=== PATIENT | female | born 1995 | race Caucasian/White ===

== ENCOUNTER 2021-06-04 08:33 | Emergency (ER) | payer OTHER ==
[2021-06-04 12:45] LABS: HEMOGLOBIN 11.8 gm/dl (12.3-15.3); RED BLOOD COUNT 3.96 M/UL (4.00-5.10); WHITE BLOOD COUNT 11.2 K/UL (4.5-11.0)
== END 2021-06-04 17:40 | disposition left against medical advice (07) ==
LOC: ER1 08:33
PROVIDERS: Emergency Medicine; Physician Assistant
DX: S22.059A Unspecified fracture of T5-T6 vertebra, initial encounter for closed fracture (principal); S22.069A Unspecified fracture of T7-T8 vertebra, initial encounter for closed fracture; F17.210 Nicotine dependence, cigarettes, uncomplicated; V49.50XA Passenger injured in collision with unspecified motor vehicles in traffic accident, initial encounter; Y92.410 Unspecified street and highway as the place of occurrence of the external cause
CPT/HCPCS: 71045; 71250; 72070; 72100; 72125; 80307; 81001; 84703; 85025; 96372; 99285; J1885; Q9967